=== PATIENT | female | born 1970 | race Caucasian/White ===

== ENCOUNTER → 2016-06-05 | Outpatient (CLI) | payer OTHER | LOC: RAD 19:28 | PROVIDERS: ATTEND Specialist | DX: H81.23 Vestibular neuronitis, bilateral (principal) | CPT/HCPCS: 70553; A9577 ==

== ENCOUNTER 2016-06-26 08:12 | Day surgery (SDC) | payer OTHER ==
[2016-06-26 09:09] LABS: PROTHROMBIN TIME 13.2 SEC (11.4-15.4)
[2016-06-26 09:10] LABS: PARTIAL THROMBOPLASTIN TIME 25.6 SEC (23.5-35.8)
[2016-06-26] MEDS ORDERED: KETOROLAC TROMETHAMINE INJ/PF 30 MG/1 ML SDV ONE (11:49)
[2016-06-26 12:30] LABS: GLUCOSE,CSF 44 mg/dL (40-70)
[2016-06-26 12:37] LABS: APPEARANCE ALL TUBES CLEAR; RBC AVERAGE 61.5; RBC DILUENT USED NONE USED; RBC DILUTION FACTOR 1; RBC SIDE 1 61; RBC SIDE 2 62; TOTAL RBC SQUARES COUNTED 225
[2016-06-26 12:38] LABS: WHITE BLOOD CELL,CSF 1 /uL (0-5)
[2016-06-26 13:58] VITALS: BP 116/75
[2016-06-27 13:38] LABS: ALBUMIN CSF 20 mg/dL (11-48); ALBUMIN SERUM 3.5 g/dL (3.5-5.5); CSF IGG INDEX 0.6 (0.0-0.7); IGG/ALBUMIN RATIO CSF 0.16 (0.00-0.25); IMMUNOGLOBULIN G CSF 3.1 mg/dL (0.0-8.6); IMMUNOGLOBULIN G SERUM 973 mg/dL (700-1600)
[2016-06-27 14:19] LABS: CSF/SERUM ALBUMIN INDEX 6 (0-8)
== END 2016-06-26 13:57 | disposition home or self-care (01) ==
LOC: RAD 08:12
PROVIDERS: ATTEND Specialist
PROC: 009U3ZX Drainage of Spinal Canal, Percutaneous Approach, Diagnostic (ICD-10-PCS; principal; 2016-06-26)
DX: G35 Multiple sclerosis (principal); R51 Headache; R53.1 Weakness; Z88.0 Allergy status to penicillin
CPT/HCPCS: 36415; 87070; 87205; 82947; 83916 ×2; 85610; 85730; 89050; 82945; 84157; 82784; 77003; 62270; J1885

== ENCOUNTER 2016-12-13 06:40 | Day surgery (SDC) | payer OTHER ==
[~2016-12-13 06:40] MED LIST: CLINDAMYCIN 600 MG/D5W RTU 600 MG/50 ML RTUPB IV PRN
[2016-12-13] MEDS ORDERED: FENTANYL CITRATE INJ/PF 100 MCG/2 ML AMPUL ONE (06:59)
[2016-12-13] MEDS ORDERED: ONDANSETRON HCL INJ/PF 4 MG/2 ML SDV ONE (06:59)
[2016-12-13] MEDS ORDERED: MIDAZOLAM 2 MG/2 ML INJ ONE (06:59)
[2016-12-13] MEDS ORDERED: PROPOFOL INJ 200 MG/20 ML VIAL IV ONE (07:00)
[2016-12-13] MEDS ORDERED: ACETAMINOPHEN 100 ML IV ONE (07:00)
[2016-12-13] MEDS ORDERED: LIDOCAINE 0.5% INJ-PF (5 MG/ML) 50 ML SDV ONE (07:00)
[2016-12-13] MEDS ORDERED: LIDOCAINE 2% INJ (20 MG/ML) 20 ML MDV ONE (07:21)
[2016-12-13] MEDS ORDERED: BUPIVACAINE HCL 0.5 % INJ/PF 30 ML SDV ONE (07:22)
[2016-12-13] MEDS ORDERED: BACITRACIN INJ 50,000 UNIT VIAL ONE (07:22)
[2016-12-13] MEDS ORDERED: POLYMYXIN B SULFATE INJ 500000 UNIT VIAL ONE (07:22)
[2016-12-13] MEDS ORDERED: NORMAL SALINE INJ/PF 0.9% 10 ML SDV ONE (07:22)
--- NOTE | 2016-12-13 09:32 | [facility]ARE DISCHARGE SUMMARY E ---
[facility] Discharge Summary NAME: NENA BAUER AGE: 46Y ADMITTED: 12/13/2016 DISCHARGED: 12/13/2016 SURGICAL PROCEDURE: Partial excision of bone, proximal phalanx, fourth digit, left foot. POSTOPERATIVE DIAGNOSIS: Nonhealed fracture of the proximal phalanx, fourth digit, left foot. SURGEON: Dev East DPM HOSPITAL COURSE: The patient was admitted to [facility] with chief complaint of a painful fourth toe. She had fractured the toe several months ago and it had never healed. She continued to have pain in the toe whenever she wore shoes and whenever she walked. The patient underwent the above surgical procedure without any complications and was transferred to the recovery room. She was discharged with a surgical shoe and ice pack, postoperative instructions, and postoperative prescriptions for Percocet 5 mg/325 mg #48 and Phenergan 25 mg #24. She was given a follow-up appointment in doctor's office in 1 week and the patient was discharged from [facility]. DICTATING PHYSICIAN: DEV EAST D.P.M. [id number] PHY#: [id number] ID: [id number] JOB#: [id number] ACCT: [id number] cc:DEV EAST DPM >
--- NOTE | 2016-12-13 09:38 | [facility] OPERATIVE REPORT E ---
[facility] Operative Report NAME: NENA BAUER AGE: 46Y DATE OF SURGERY: 12/13/2016 ROOM: PREOPERATIVE DIAGNOSIS: Nonhealing fracture, proximal phalanx fourth digit left foot. POSTOPERATIVE DIAGNOSIS: Nonhealing fracture, proximal phalanx fourth digit left foot. SURGICAL PROCEDURE: Partial excision of bone, proximal phalanx fourth digit left foot. SURGEON: DEV FUENTES DPM PROCEDURE: Following induction of IV regional local anesthesia, the left foot and leg were prepped and draped in the usual sterile manner. Pneumatic tourniquet was placed around the left ankle and inflated to 250 mmHg after exsanguination of the limb by Esmarch bandage. The following surgical procedure was then performed: Partial excision of bone, proximal phalanx fourth digit left foot. Attention was directed to the dorsal aspect of the fourth digit of the left foot where an approximately 2 cm dorsal linear incision was made. The incision was deepened via sharp dissection. All bleeders were clamped and Bovied as necessary for the purpose of hemostasis. The extensor digitorum longus tendon was incised transversely at the proximal interphalangeal joint and reflected proximally from the bone. The head of the proximal phalanx was freed from its soft tissue attachment via sharp dissection. The fracture site could be seen. It went transversely approximately 0.5 cm distal to the joint, encompassing the head of the proximal phalanx. Utilizing a double action bone cutting forceps, the head of the proximal phalanx was removed in toto in a transverse fashion. There was a small bone spicule on the medial and lateral aspects of the phalanx and these were removed utilizing a rongeur. The area was then rasped smooth utilizing a hand held cross cut rasp. An x-ray was taken and it was noted that the proximal phalanx of the fourth digit that the fracture fragments had been removed and there were no extraneous pieces of bone left. The area was then flushed with copious amounts of an antibacterial saline solution. The distal aspect of the proximal piece of the extensor digitorum longus tendon was sutured plantarly into the flexor digitorum longus tendon utilizing a simple interrupted suture of 3-0 Vicryl. The extensor digitorum longus tendon was then coapted and maintained utilizing simple interrupted sutures of 3-0 Vicryl. The skin was then coapted and maintained utilizing horizontal mattress sutures of 5-0 nylon. Another x-ray was taken to make sure that the digit was in an anatomically correct position and it was. The foot was then cleansed utilizing alcohol foam and then a dry sterile dressing was then applied consisting of Ken silk, 4 x 4, Conform, Kerlix, and Coban. The pneumatic tourniquet was released. All digits became warm and viable and the patient was transferred to the recovery room. DICTATING PHYSICIAN: DEV FUENTES D.P.M. [id number] PHY#: [id number] ID: [id number] JOB#: [id number] ACCT: [id number] cc:DEV FUENTES DPClifford > MTDD
--- NOTE | 2016-12-13 13:56 | RADIOLOGY REPORT (SQ) ---
EXAM DESCRIPTION: FOOT LEFT 2 VIEWS; NO CHG FLUORO COMPLETED DATE/TIME: 12/13/2016 1:46 pm REASON FOR STUDY: LT FOOT BONE REMOVAL 4TH TOE S92.812G OTHER FRACTURE OF LEFT FOOT, 7THG COMPARISON: None. FLUOROSCOPY TIME: 3 second 2 images saved to PACS. TECHNIQUE: Intra-operative images acquired during surgical procedure to evaluate progress. NUMBER OF IMAGES: 2 spot fluoroscopic images LIMITATIONS: None. FINDINGS: 2 spot images were obtained from resection of the distal head of the proximal phalanx of t he 4th digit. With images demonstrate removal of the distal head of the 4th proximal phalanx. No ot her significant abnormality identified. Please see operative report full details regarding procedure . IMPRESSION: IMAGE(S) OBTAINED DURING PROCEDURE. COMMENT: Quality ID 145: Final reports for procedures using fluoroscopy that document radiation exp osure indices, or exposure time and number of fluorographic images (if radiation exposure indices are not available) Please consult full operative report of the attending physician for description of the procedure. TECHNICAL DOCUMENTATION: JOB ID: [id number] [employer]- All Rights Reserved
== END 2016-12-13 09:20 | disposition home or self-care (01) ==
LOC: SC 06:40
PROVIDERS: ATTEND Podiatrist Foot Surgery
PROC: 0QBR0ZZ Excision of Left Toe Phalanx, Open Approach (ICD-10-PCS; principal; 2016-12-13 07:30)
DX: S92.512G Displaced fracture of proximal phalanx of left lesser toe(s), subsequent encounter for fracture with delayed healing (principal); X58.XXXD Exposure to other specified factors, subsequent encounter; E53.9 Vitamin B deficiency, unspecified; G43.909 Migraine, unspecified, not intractable, without status migrainosus; Z79.899 Other long term (current) drug therapy
CPT/HCPCS: 73620; 28124; J2250; J3490 ×5; J3010; J2405; J2704; J0131; 01480

== ENCOUNTER → 2019-10-22 | Outpatient (CLI) | payer OTHER ==
--- NOTE | 2019-10-22 15:08 | RADIOLOGY REPORT (SQ) ---
EXAM DESCRIPTION: UGI W/ SINGLE CONTRAST IMAGES COMPLETED DATE/TIME: 10/22/2019 8:12 am REASON FOR STUDY: Z98.84 BARIATRIC SURGERY STATUS E66.01 MORBID (SEVERE) OBESITY DUE TO EXCESS MIGUELINA SIOMARA Z98.84 BARIATRIC SURGERY STATUS COMPARISON: None. TECHNIQUE: Under fluoroscopic guidance, patient ingested thick and thin barium. Fluoroscopic spot im ages and routine radiographic images acquired and stored on PACS. 12 MM BARIUM TABLET GIVEN: Barium tablet passed through the esophagus and into the stomach without de lay. LIMITATIONS: None. FLUOROSCOPY TIME: FLUORO TIME: 2.6 minutes 14 images submitted to PACS. FINDINGS: NEUROMUSCULAR COORDINATION OF SWALLOW: Normal. No aspiration. ESOPHAGEAL MOTILITY: Normal peristalsis. No esophageal spasm. ESOPHAGEAL MUCOSA: Normal mucosa without masses or ulceration. GASTRO-ESOPHAGEAL JUNCTION: No hiatal hernia or reflux. STOMACH: Surgical changes consistent with gastric bypass. Normal-appearing gastric pouch with prompt emptying of barium into small bowel. GASTRIC OUTLET: No delay in emptying. DUODENAL BULB: Not applicable, gastric bypass. DUODENUM: Not applicable, gastric bypass. PROXIMAL JEJUNUM: Normal mucosal pattern. No dilatation, segmentation, strictures or masses. NON-GI TRACT STRUCTURES: No significant finding. OTHER: No other significant finding. IMPRESSION: SURGICAL CHANGES CONSISTENT WITH GASTRIC BYPASS, WITHOUT ABNORMALITIES IDENTIFIED. COMMENT: NONE Quality ID 145: Final reports for procedures using fluoroscopy that document radiation exposure shayy carli, or exposure time and number of fluorographic images (if radiation exposure indices are not avail able) TECHNICAL DOCUMENTATION: JOB ID: [id number] [employer]- All Rights Reserved Reading location - IP/workstation name: [email or web address] [id number]
== END ==
LOC: RAD 07:26
PROVIDERS: ATTEND Surgery
DX: E66.01 Morbid (severe) obesity due to excess calories (principal); Z98.84 Bariatric surgery status
CPT/HCPCS: 74240